=== PATIENT | male | born 1950 | race American Indian/Alaskan Native ===

== ENCOUNTER 2018-11-16 11:21 | Outpatient (CLI) | payer MEDICARE, MEDICAID | END 2018-11-16 11:22 | disposition home or self-care (01) | LOC: C.PAT 11:21 → C.VASC 11:22 | DX: N18.6 End stage renal disease (principal) ==

== ENCOUNTER 2018-12-05 05:39 | Day surgery (SDC) | payer MEDICARE, MEDICAID ==
[2018-08-18 08:29] VITALS: BMI 31.3
[2018-12-05] MEDS ORDERED: HEPARIN-NS 5,000 UNITS/500 ML 5,000 UNIT/500 ML BAG IV ONE (07:07)
[2018-12-05] MEDS ORDERED: ceFAZolin 1 gm in NS 2 GM/200 ML BAG IVPB ONE (07:07)
[2018-12-05] MEDS ORDERED: Propofol 10 mg/ml Inj (20 ML) ONE (07:59)
[2018-12-05] MEDS ORDERED: Midazolam 2 MG/2 ML VIAL ONE (07:59)
[2018-12-05] MEDS ORDERED: ePHEDrine 50 mg/ml Inj ONE (08:33)
[2018-12-05] MEDS ORDERED: HYDROmorphone 0.5 mg/0.5 ml ISec IVP PRN (10:40)
--- NOTE | 2018-12-05 10:42 | PCM.SURG1 ---
Surgeon's Initial Post Op Note - Surgeon's Notes Surgeon: Dr. Foley [employer] Specialist: Dr. William PGY-4, Corey DEAN Type of Anesthesia: General LMA Pre-Operative Diagnosis: End stage renal disease requiring dialysis Operative Findings: palpable thrill, radial, ulnar pulse Post-Operative Diagnosis: End stage renal disease requiring dialysis Operation Performed: Left AV shunt with bovine graft Specimen/Specimens Removed: none Estimated Blood Loss: EBL {In ML}: 30 Blood Products Given: N/A Drains Used: No Drains Post-Op Condition: Good Date of Surgery/Procedure: 12/05/18 Time of Surgery/Procedure: 08:00
[2018-12-05 13:21] VITALS: BP 124/75; RESP 16; TEMP 97.8; O2SAT 98
[2018-12-05 13:22] VITALS: PULSE 70
--- NOTE | 2018-12-05 22:08 | OP ---
PROCEDURE DATE: 12/05/2018 PREOPERATIVE DIAGNOSIS: Renal failure. POSTOPERATIVE DIAGNOSIS: Renal failure. PROCEDURE CARRIED OUT: Brachiobasilic shunt, left arm. SURGEON: Harish Foley Jr., MD [employer] YACHT: Dr. William. TYPE OF ANESTHESIA: General anesthesia. ANESTHESIA ADMINISTERED BY: Dr. Torres. INDICATIONS: The patient is a 68-year-old man with a variety of other medical problems including renal failure, soon requiring dialysis. OPERATIVE FINDINGS: The patient had a history of intravenous drug abuse and had no visible surface veins. The forearm basilic vein was gone. The upper arm basilic vein was only open for about 2 inches and then dived into the brachial vein. Because of this, we did not use the basilic vein and created a basilic vein fistula but instead placed a bovine graft originating at the brachial artery above the elbow and terminating the basilic vein in the portion of the arm. DESCRIPTION OF PROCEDURE: The patient was given general anesthesia, intravenous antibiotics. The artery and vein were exposed. A tunnel was created. The anastomosis was carried out using loop magnification and heparin anticoagulation and vessel loop control. After completion of the anastomoses and obtaining hemostasis, we closed the wounds with Monocryl and nylon sutures and closed the skin with skin clips. The blood loss for the procedure was less than 20 mL. There was a palpable pulse and a good thrill through the shunt at the end of the procedure. Harish Foley Jr., MD cc: Dr. Herbert Matrin MD
== END 2018-12-05 12:55 | disposition home or self-care (01) ==
LOC: C.SDS 05:39
PROVIDERS: ATTEND Surgery Vascular Surgery
DX: I12.0 Hypertensive chronic kidney disease with stage 5 chronic kidney disease or end stage renal disease (principal); N18.6 End stage renal disease; E78.5 Hyperlipidemia, unspecified; Z86.73 Personal history of transient ischemic attack (TIA), and cerebral infarction without residual deficits; Z86.19 Personal history of other infectious and parasitic diseases; Z21 Asymptomatic human immunodeficiency virus [HIV] infection status
CPT/HCPCS: 36821; J0690; J1644; J2250; J2704; J3010